=== PATIENT | female | born 1960 | race Caucasian/White ===

== ENCOUNTER 2021-09-05 09:23 | Outpatient (CLI) | payer OTHER, SELFPAY ==
[2021-09-05 16:22] LABS: Alanine Aminotransferase 32 U/L (4-35); Albumin Level 4.3 g/dL (3.5-5.1); Alkaline Phosphatase 95 U/L (38-126); Anion Gap 7 mmol/L (8-16); Aspartate Amino Transferase 32 U/L (14-36); Bilirubin,Total 1.7 mg/dL (0.2-1.3); Blood Urea Nitrogen 15 mg/dL (7-17); Calcium 9.9 mg/dL (8.4-10.2); Carbon Dioxide 28 mmol/L (22-30); Chloride 106 mmol/L (98-107); Cholesterol 202 mg/dL (0-200); Estimated Glomerular Filt Rate > 60; Glucose 103 mg/dL (65-110); HDL Direct 43 mg/dL; Potassium 4.2 mmol/L (3.4-5.0); Sodium 141 mmol/L (137-145); Triglycerides 195 mg/dL (<150)
[2021-09-05 16:33] LABS: LDL Cholesterol Direct 110 mg/dL
[2021-09-05 16:53] LABS: Thyroid Stimulating Hormone 0.932 uIU/mL (0.465-4.680)
[2021-09-05 17:08] LABS: Vitamin D 25 Hydroxy 16.9 ng/mL
[2021-09-05 17:12] LABS: Creatinine Urine 124.2 mg/dL
[2021-09-05 17:16] LABS: Microalbumin Urine Random 6.2 mg/L (0-16.7)
== END 2021-09-05 09:24 | disposition home or self-care (01) ==
LOC: ANHWCLAB 09:30
PROVIDERS: Visit Provider Internal Medicine Endocrinology, Diabetes & Metabolism
DX: E11.65 Type 2 diabetes mellitus with hyperglycemia (principal); E78.5 Hyperlipidemia, unspecified; I10 Essential (primary) hypertension; R79.89 Other specified abnormal findings of blood chemistry; Z51.81 Encounter for therapeutic drug level monitoring; Z79.899 Other long term (current) drug therapy
CPT/HCPCS: 36415; 80053; 80061; 82043; 82306; 82607; 84443